=== PATIENT | female | born 1975 | race Caucasian/White ===

== ENCOUNTER 2017-01-13 10:09 | Emergency (ER) | payer OTHER ==
[2017-01-13 10:16] VITALS: BMI 27.4
--- NOTE | 2017-01-13 10:44 | PDOC ---
History of Present Illness - General Chief Complaint: Pain, Acute Stated Complaint: POST OP PAIN Time Seen by Provider: 01/13/17 10:43 - History of Present Illness Initial Comments: 01/13/17 10:43 Ms. Nath is a 41 yo female with a significant past medical history of recent "tibial tubercle osteotomy" with anxiety and depression who presents to the emergency department after she felt a "pop" when putting her foot down while walking with her crutches today. She reports that she immediately felt a lot of pain and took an oxycodone 10/325. She reports this "took the edge off" but that she is still in a lot of pain. She is worried one of her screws from the procedure came out. The patient denies chest pain, shortness of breath, headache and dizziness. Denies fever, chills, nausea, vomit, diarrhea and constipation. Denies dysuria, frequency, urgency and hematuria. Allergies: NKDA Past surgical history: multiple knee surgeries, tonsillectomy Past History - Past Medical History Allergies/Adverse Reactions: Allergies Allergy/AdvReac Type Severity Reaction Status Date / Time dust Allergy Uncoded 01/13/17 10:16 Home Medications: Ambulatory Orders Alprazolam [Xanax] 0.5 mg PO ASDIR 01/13/17 Escitalopram Oxalate [Lexapro -] 20 mg PO DAILY 01/13/17 Oxycodone HCl/Acetaminophen [Oxycodone-Acetaminophen 10-325] 1 each PO QID PRN # 8 tablet MDD 4 tablets 01/13/17 Valacyclovir HCl [Valtrex] 1,000 mg PO ASDIR 01/13/17 Other medical history: denies - Suicide/Smoking/Psychosocial Hx Smoking History: Never smoked Information on smoking cessation initiated: No Hx Alcohol Use: No Drug/Substance Use Hx: No Substance Use Type: None Review of Systems - Review of Systems Comments:: 01/13/17 10:43 GENERAL/CONSTITUTIONAL: No fever or chills. No weakness. HEAD, EYES, EARS, NOSE AND THROAT: No change in vision. No ear pain or discharge. No sore throat. CARDIOVASCULAR: No chest pain or shortness of breath RESPIRATORY: No cough, wheezing, or hemoptysis. GASTROINTESTINAL: No nausea, vomiting, diarrhea or constipation. GENITOURINARY: No dysuria, frequency, or change in urination. MUSCULOSKELETAL: +Significant pain to RLE just below knee joint. SKIN: No rash NEUROLOGIC: No headache, vertigo, loss of consciousness, or change in strength/ sensation. ENDOCRINE: No increased thirst. No abnormal weight change HEMATOLOGIC/LYMPHATIC: No anemia, easy bleeding, or history of blood clots. ALLERGIC/IMMUNOLOGIC: No hives or skin allergy. *Physical Exam - Vital Signs Last Vital Signs Temp Pulse Resp BP Pulse Ox 98.1 F 87 18 143/60 99 01/13/17 10:15 01/13/17 10:15 01/13/17 10:15 01/13/17 10:15 01/13/17 10:15 - Physical Exam Comments: 01/13/17 10:43 GENERAL: Awake, alert, and fully oriented, in no acute distress HEAD: No signs of trauma, normocephalic, atraumatic EYES: PERRLA, EOMI, sclera anicteric, conjunctiva clear ENT: Auricles normal inspection, hearing grossly normal, nares patent, oropharynx clear without exudates. Moist mucosa NECK: Normal ROM, supple, no lymphadenopathy, JVD, or masses LUNGS: No distress, speaks full sentences, clear to auscultation bilaterally HEART: Regular rate and rhythm, normal S1 and S2, no murmurs, rubs or gallops, peripheral pulses normal and equal bilaterally. ABDOMEN: Soft, nontender, normoactive bowel sounds. No guarding, no rebound. No masses EXTREMITIES: +RLE has well healing wound along tibia approximately 15cm long, still covered in dermabond. No gavin pus, difference in temperature, or erythema noted. Edematous portion medial to center of incision site approximately 6 cm in diameter. NEUROLOGICAL: Cranial nerves II through XII grossly intact. Normal speech, normal gait, no focal sensorimotor deficits SKIN: Warm, Dry, normal turgor, no rashes or lesions noted. ED Treatment Course - LABORATORY CBC & Chemistry Diagram: 01/13/17 11:26 01/13/17 11:26 Medical Decision Making - Medical Decision Making 01/13/17 14:28 Patient presented complaining of severe pain, concerned/anxious her "screw popped out." Pain improved after 4mg morphine and 4mg zofran. Pt's home dose of xanax administered for symptomatic control of anxiety; further improvement of pain with additional 4 mg of morphine. PA/Lat views of tibia taken. Discussed case with surgeon (Magdaleno Collier at [facility]) regarding treatment options. As no displacement of fracture surgeon advised rest/ice/pain control with follow-up in office tomorrow. Will follow recommendations and discharge patient with 4 day prescription for oxycodone. Patient verbalized understanding and will follow -up with surgeon tomorrow. X-ray read and discs given to patient to bring to appt tomorrow. 01/13/17 14:36 *DC/Admit/Observation/Transfer Diagnosis at time of Disposition: Post-op pain - Discharge Dispostion Disposition: HOME - Prescriptions Prescriptions: Oxycodone HCl/Acetaminophen [Oxycodone-Acetaminophen 10-325] 1 each PO QID PRN # 8 tablet MDD 4 tablets PRN Reason: Pain Level 6-10 - Referrals Referrals: STAFF,NOT ON [Primary Care Provider] - - Patient Instructions Printed Discharge Instructions: DI for Prescription Opioid Use Additional Instructions: Please follow-up as discussed with Dr. Magdaleno Collier tomorrow.
--- NOTE | 2017-01-13 10:48 | PDOC ---
Attending Attestation - Resident Resident Name: Juan Molina - ED Attending Attestation I have performed the following: I have examined & evaluated the patient, The case was reviewed & discussed with the resident, I agree w/resident's findings & plan, Exceptions are as noted - HPI HPI: 01/13/17 10:48 41yo F recent R tibial tuberosity osteotomy @[facility] (Dr. Magdaleno Collier) 2 weeks ago p/w severe knee pain after twisting her knee this morning and feeling a pop. Pt reports 10/10 pain currently. Feels like one of the screws came loose, reports new swelling on the inferiomedial aspect of her knee. Denies other sxs of fevers , chills, CP, SOB, N/V/D, abd pain, rashes, focal weakness/numbness. Took a 10- 325 oxycodone after the pain. - Physicial Exam PE: 01/13/17 11:08 GENERAL: Awake, alert, and fully oriented, in no acute distress HEAD: No signs of trauma EYES: PERRLA, EOMI, sclera anicteric, conjunctiva clear ENT: Auricles normal inspection, hearing grossly normal, nares patent, oropharynx clear without exudates. Moist mucosa NECK: Normal ROM, supple, no lymphadenopathy, JVD, or masses LUNGS: Breath sounds equal, clear to auscultation bilaterally. No wheezes, and no crackles HEART: Regular rate and rhythm, normal S1 and S2, no murmurs, rubs or gallops ABDOMEN: Soft, nontender, normoactive bowel sounds. No guarding, no rebound. No masses EXTREMITIES: R knee with midline scar, c/d/i. +edema and tenderness to inferomedial aspect of knee. No erythema or skin changes. 2+ DP pulses b/l. ROM limited by pain. NEUROLOGICAL: Normal speech, cranial nerves intact, negative pronator drift, 5/ 5 strength in all 4 extremities, normal sensation to light touch in all 4 extremities, normal cerebellar exam, normal gait, normal reflexes and tone SKIN: Warm, Dry, normal turgor, no rashes or lesions noted. - Medical Decision Making 01/13/17 11:13 41-year-old female with recent knee surgery presents with sudden pain after awkwardly stepping with her right leg this morning. Slightly hypertensive likely secondary to pain but remainder of vitals are within normal limits. Exam with swelling to the inferior medial aspect of her right knee. Will obtain x- rays. Currently strong peripheral pulses and soft compartments. -pain control -xr -call Dr. Collier -reassess 01/13/17 14:28 Labs unremarkable. X-ray with 2 orthopedic screws screws that appear in place. X -ray image was sent over to the patient's orthopedist Dr Collier who states that he does not see anything different compared to her previous imaging. He requests that we control her pain, advised her to rest, elevate and ice her knee and to follow-up with him tomorrow. I discussed the physical exam findings, ancillary test results and final diagnoses with the patient. I answered all of the patient's questions. The patient was satisfied with the care received and felt comfortable with the discharge plan and treatment plan. The patient will call their primary care physician within 24 hours to arrange follow-up and will return to the Emergency Department with any new, persistent or worsening symptoms.
[2017-01-13] MEDS ORDERED: ONDANSETRON 4 MG/2 ML VIAL IVPUSH ONE (10:53)
[2017-01-13] MEDS ORDERED: morphine CARPU-JECT 4 MG/1 ML DISP.SYRIN IVPUSH ONE ×2 (10:53→13:08)
[2017-01-13] MEDS ORDERED: ONDANSETRON 4 MG/2 ML VIAL ONE (10:58)
[2017-01-13] MEDS ORDERED: morphine CARPU-JECT 10 MG/1 ML DISP.SYRIN ONE ×2 (10:58→13:29)
[2017-01-13 11:35] LABS: BASOPHIL 0.9 % (0-2.0); EOSINOPHIL 2.4 % (0-4.5); MCH 30.4 pg (25.7-33.7); MCHC 33.1 g/dl (32.0-36.0); MEAN CELL VOLUME 91.9 fl (80-96); MEAN PLT VOLUME 7.5 fl (7.5-11.1); NEUTROPHILS 72.7 % (42.8-82.8); PLATELET COUNT 388 K/MM3 (134-434); RDW 13.8 % (11.6-15.6); WHITE BLOOD COUNT 9.5 K/mm3 (4.0-10.0)
[2017-01-13] MEDS ORDERED: ALPRAZolam 2 MG TABLET PO ONE (11:40)
[2017-01-13] MEDS ORDERED: ALPRAZolam 0.25 MG TABLET ONE (11:44)
[2017-01-13 11:57] LABS: ALBUMIN 3.7 g/dl (3.4-5.0); ALK PHOS 56 U/L (45-117); ANION GAP 10 (8-16); BILIRUBIN,TOTAL 0.6 mg/dL (0.2-1.0); CALCIUM 9.3 mg/dL (8.5-10.1); CO2 24 mmol/L (21-32); CREATININE 0.7 mg/dL (0.55-1.02); GLUCOSE,RANDOM 97 mg/dL (74-106); SGPT/ALT 71 U/L (12-78); TOT PROT 7.2 g/dl (6.4-8.2)
[2017-01-13 11:59] LABS: SGOT/AST 69 U/L (15-37)
[2017-01-13 14:57] VITALS: BP 113/67; PULSE 53; TEMP 98.6
== END 2017-01-13 14:57 | disposition home or self-care (01) ==
LOC: JER 10:09
PROC: 3E033NZ Introduction of Analgesics, Hypnotics, Sedatives into Peripheral Vein, Percutaneous Approach (ICD-10-PCS; principal; 2017-01-13)
PROC: 3E033GC Introduction of Other Therapeutic Substance into Peripheral Vein, Percutaneous Approach (ICD-10-PCS; 2017-01-13)
DX: G89.18 Other acute postprocedural pain (principal); F41.9 Anxiety disorder, unspecified; F32.9 Major depressive disorder, single episode, unspecified
CPT/HCPCS: 36415; 73560-TC-RT; 73590-TC-RT; 80053; 84703; 85025; 99285-25